=== PATIENT | female | born 1965 | race African-American/Black ===

== ENCOUNTER → 2020-05-04 | Outpatient (CLI) | payer BC, OTHER ==
--- NOTE | 2020-05-04 14:13 | Diagnostic Imaging Report ---
EXAMINATION: Right wrist at 1:28 p.m. INDICATION: Follow-up fracture. Five views were obtained. There are no prior studies for available for comparison. Reportedly, the patient has had a prior fracture of the pisiform. There is a small 1.6 mm calcific density in the soft tissues along the medial aspect of the pisiform. This may represent a minute avulsion fracture. There also appears to be a nondisplaced fracture line extending through the pisiform itself there is also increased density about the pisiform suggesting a healing response. No other fracture or acute bony abnormality is identified. The radiocarpal joint shows mild narrowing. The soft tissues are unremarkable. IMPRESSION: 1. There is a healing essentially nondisplaced fracture of the pisiform. There also appears to be a small avulsion fracture in this region. If previous studies are available they would be helpful for comparison. 2. There is no acute bony abnormality identified. Dictated by: Dictated on workstation # [id number]
== END ==
LOC: RAD FS 13:03
PROVIDERS: ATTEND Nurse Practitioner
DX: S62.164D Nondisplaced fracture of pisiform, right wrist, subsequent encounter for fracture with routine healing (principal); X58.XXXD Exposure to other specified factors, subsequent encounter
CPT/HCPCS: 73110

== ENCOUNTER → 2020-05-25 | Outpatient (CLI) | payer BC ==
--- NOTE | 2020-05-25 14:22 | Diagnostic Imaging Report ---
INDICATION: Follow-up pisiform fracture. COMPARISON: 05/04/2020. FINDINGS: Multiple radiographic views of the right wrist were obtained. There is somewhat irregular appearance to the pisiform. Per provided history, patient is status post previous pisiform fracture. Fracture lines are suboptimally visualized due to the planar nature of the exam, but no displaced fracture fragments are seen. No other acute fracture dislocation of the right wrist is identified. Joint spaces are otherwise maintained. No unexpected radiopaque foreign bodies are seen. IMPRESSION: 1. Redemonstration irregular appearance of the pisiform of the right wrist as described above. Dictated by: Dictated on workstation # [id number]
== END ==
LOC: RAD FS 13:48
PROVIDERS: ATTEND Nurse Practitioner
DX: S62.164D Nondisplaced fracture of pisiform, right wrist, subsequent encounter for fracture with routine healing (principal)
CPT/HCPCS: 73110